=== PATIENT | male | born 1955 | race Caucasian/White ===

== ENCOUNTER 2017-07-12 16:36 | Emergency (ER) | payer OTHER ==
[~2017-07-12] VITALS: Ht 162.6 cm; Wt 76.1 kg
[2017-07-12 16:40] VITALS: Ht 162.6 cm; Wt 76.1 kg
[2017-07-12] MEDS ORDERED: IBUPROFEN 600 MG TAB PO ONE (17:30)
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
--- NOTE | 2017-07-12 18:39 | RADRPT ---
PROCEDURE: XR Elbow. CLINICAL INDICATION: Pain. TECHNIQUE: Three views of the right elbow. COMPARISON: None available. FINDINGS: The anterior fat pad is visible, but not elevated. The posterior fat pad is not seen. The anterior humeral and radiocapitellar lines are normal. No fracture or dislocation is identified. The joint spaces are preserved. There is no significant soft tissue swelling. IMPRESSION: 1. No fracture or dislocation of the right elbow. RPTAT: HTAR .Zack Javed MD, Date Time Electronically viewed and signed by .Zack Javed MD, on 07/12/2017 18:38 .R/
[2017-07-12] MEDS ORDERED: HYDR-906 PO (19:10)
[2017-07-12] MEDS ORDERED: CYCL-319 PO (19:10)
[2017-07-12] MEDS ORDERED: NAPR-260 PO (19:10)
[2017-07-12 19:29] VITALS: BP 154/89; PULSE 87; RESP 18; TEMP 97.1
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
== END 2017-07-12 19:31 | disposition home or self-care (01) ==
LOC: FTE 16:36
DX: M25.511 Pain in right shoulder (principal); M25.521 Pain in right elbow
CPT/HCPCS: 73000; 73080; Z7502; Z7610

== ENCOUNTER 2018-12-10 11:35 | Day surgery (SDC) | payer OTHER ==
[~2018-12-10] VITALS: Ht 161.3 cm; Wt 74.2 kg
[2018-12-10] VITALS (12 sets, daily range): BP systolic 127–174; BP diastolic 76–98; PULSE 53–68; RESP 15–20; Ht 161.3 cm; Wt 74.2 kg
[~2018-12-10 11:35] MED LIST: CYCL10TA7 PO; HYDR-4011 PO; NAPR-985 PO
[2018-12-10] MEDS ORDERED: ATEN-51 PO (11:56)
--- NOTE | 2018-12-10 12:31 | PREAC ---
Date/Time of Note Date/Time of Note DATE: 12/10/18 TIME: 12:28 Anesthesia Eval and Record Evaluation Time Pre-Procedure Interview DATE: 12/10/18 TIME: 12:28 Age 63 Sex male NPO: 8 hrs Preoperative diagnosis supraumbilical ventral hernia Planned procedure open repair of ventral hernia Past Medical History Past Medical History: Includes Cardio: HTN (on Atenolol, took today) Musculoskeletal: Other (ventral hernia. also have bilateral inguinal hernia, will not be operated on today, only ventral hernia repair.) Surgery & Anesthesia Issues No known issue (never had anesthesia ) Meds Anticoagulation: No Beta Carine within 24 hr: Yes Reported Medications Atenolol* (Atenolol*) 25 Mg Tablet, 25 MG PO DAILY, #30 TAB 12/10/18 Discontinued Scripts Cyclobenzaprine Hcl* (Cyclobenzaprine Hcl*) 10 Mg Tablet, 10 MG PO TID, #15 TAB Prov:HOWARD UPTON PA-C 07/12/17 Naproxen* (Naprosyn*) 500 Mg Tablet, 500 MG PO BID PRN for PAIN AND/OR INFLAMMATION, #30 TAB Prov:HOWARD UPTON PA-C 07/12/17 Hydrocodone/Acetaminophen (English 5-325 Tablet) 1 Each Tablet, 1 TAB PO Q6H PRN for PAIN, #7 TAB Prov:HOWARD UPTON PA-C 07/12/17 Current Medications Cefazolin Sodium/ Dextrose 50 ml @ 100 mls/hr PREOP IVPB ; Start 12/10/18 at 14:00; Stop 12/10/18 at 20:00 Sodium Chloride 1,000 ml @ 75 mls/hr [id number] IV ; Start 12/10/18 at 14:00; Stop 12/10/18 at 18:00 Meds reviewed: Yes (atenolol only ) Allergies Coded Allergies: No Known Allergy (Unverified , 12/10/18) Allergies Reviewed: Yes Labs/Studies Labs Reviewed: Reviewed by anesthesiologist test: N/A Studies: ECG (sinus bradycardia ), CXR (normal ) Pre-procedure Exam Last vitals Vital Signs Date Temp Pulse Resp B/P (MAP) Pulse Ox O2 O2 Flow FiO2 Time Delivery Rate 12/10/18 98.1 53 16 157/87 98 Room Air 12:21 (110) Airway: Adequate mouth opening, Adequate thyromental dist Mallampati: Mallampati II Teeth: Normal Lung: Normal Heart: Normal ASA Physical Status ASA physical status: 2 Emergency: None Planned Anesthetic General/MAC: ETT Planned Pain Management Parenteral pain med, Local by surgeon Pre-operative Attestations Prior to commencing anesthesia and surgery, the patient was re-evaluated, there was verification of: *The patient's identity *The results of appropriate recent lab work and preoperative vital signs *The above evaluation not changing prior to induction *Anesthetic plan, risk benefits, alternative and complications discussed with patient/family; questions answered; patient/family understands, accepts and wishes to proceed. KIRSTEN PORTILLO December 10, 2018 12:31
[2018-12-10] MEDS ORDERED: SOD CHLORIDE 0.9% 1,000 ML IV SCH (14:00)
[2018-12-10] MEDS ORDERED: CEFAZOLIN 2 GM/50 ML (PMX) 50 ML IVPB SCH (14:00)
[2018-12-10] MEDS ORDERED: PROPOFOL 20 ML ONE (14:08)
[2018-12-10] MEDS ORDERED: CEFAZOLIN 1 GM INJ ONE (14:08)
[2018-12-10] MEDS ORDERED: FENTAnyl 50 MCG/ML VIAL ONE (14:08)
[2018-12-10] MEDS ORDERED: LIDOCAINE 100 MG SYRINGE ONE (14:08)
[2018-12-10] MEDS ORDERED: ROCURONIUM 50 MG INJ ONE (14:08)
[2018-12-10] MEDS ORDERED: BUPIVACAINE 0.25%/EPI (SDV) 30 ML INJ ONE (14:42)
--- NOTE | 2018-12-10 14:42 | HPN ---
Date/Time of Note Date/Time of Note DATE: 12/10/18 TIME: 14:42 Interval H&P Admission Note Pt. seen H&P reviewed: No system changes NAYE REEVES MD December 10, 2018 14:42
[2018-12-10] MEDS ORDERED: POLYMYXIN/BACITRACIN 1L IRRIG ONE (16:00)
[2018-12-10] MEDS ORDERED: BUPIVACAINE 0.25% (MPF) 30 ML INJ ONE (16:09)
[2018-12-10] MEDS ORDERED: GLYCOPYRROLATE 0.4 MG INJ ONE (16:25)
[2018-12-10] MEDS ORDERED: NEOSTIGMINE 3 MG/3 ML SYRINGE ONE (16:25)
[2018-12-10] MEDS ORDERED: IBUPROFEN 600 MG TAB PO PRN (16:30)
[2018-12-10] MEDS ORDERED: KETOROLAC 30 MG INJ IV PRN ×2 (16:30→17:00)
[2018-12-10] MEDS ORDERED: morphine 2 MG INJ IV PRN (16:30)
[2018-12-10] MEDS ORDERED: HYDROCODONE/APAP (5/325) TAB PO PRN ×2 (16:30)
[2018-12-10] MEDS ORDERED: ONDANSETRON 4 MG INJ IV PRN ×2 (16:30→17:00)
--- NOTE | 2018-12-10 16:38 | PAC ---
Date/Time of Note Date/Time of Note DATE: 12/10/18 TIME: 16:37 Post-Anesthesia Notes Post-Anesthesia Note Last documented vital signs Vital Signs Date Temp Pulse Resp B/P (MAP) Pulse Ox O2 O2 Flow FiO2 Time Delivery Rate 12/10/18 98.1 53 16 157/87 98 Room Air 1637 (110) Activity: WNL Respiratory function: WNL Cardiovascular function: WNL Mental status: Baseline Pain reasonably controlled: Yes Hydration appropriate: Yes Nausea/Vomiting absent: Yes NOEL PARDO December 10, 2018 16:38
--- NOTE | 2018-12-10 16:38 | OPR ---
Date/Time of Note Date/Time of Note DATE: 12/10/18 TIME: 16:31 Operative Report Procedure Date: December 10, 2018 Preoperative Diagnosis Ventral hernia chronically incarcerated with fat Postoperative Diagnosis Ventral hernia chronically incarcerated with fat Operation/Procedure Performed 1. Open repair of ventral hernia with mesh 2. Partial omentectomy Surgeon see signature line Rotary Peel Oven Tender None Anesthesia Type: general Anesthesiologist: NOEL PARDO Estimated Blood Loss: minimal Transfusion none Specimen Hernia sac and contents Grafts/Implants Bard ventraLex ST mesh size small Complications none Pt Condition Post Procedure: stable Disposition: PACU Indications Patient is an 63-year-old male who presented to the office with a painful bulge of the ventral abdominal wall. He was diagnosed on physical exam as having a ventral abdominal wall hernia approximately 2 cm above the umbilicus. The patient was scheduled for elective repair with mesh. All risks and benefits of the procedure including, but not limited to: Wound infection, excessive bleeding, postoperative seroma/hematoma formation, hernia recurrence, chronic pain, etc. were all discussed with the patient in full detail. The patient fully understood and wished to proceed with the procedure. Informed consent was obtained. Procedure Description Patient was brought to the operating room and placed supine on the operating table. Bilateral sequential compression devices were placed on both lower extremities. A dose of broad-spectrum perioperative intravenous antibiotics was given. After the induction of smooth general anesthesia the patient's abdomen was prepped and draped in standard surgical fashion. After performance of the surgical timeout a supraumbilical midline incision was made using a 15 blade scalpel. Incision was carried down through the skin and subcutaneous tissues. A moderate sized ventral abdominal wall hernia was identified containing incarcerated omentum. This was dissected free of surrounding tissues down to the level of the neck of the hernia in the anterior rectus fascia. The sac was dissected off of the fascial opening. Once mobilized a partial omentectomy was performed en bloc with the hernia sac transecting both the sac and the contents at its base. The stump was tied using a 2-0 Vicryl suture. The hernia contents were passed off the field as specimen. The hernia defect measured approximately 1.5 cm in maximal dimension. A small Bard Ventralex ST round mesh was then used to repair the hernia defect. Its tails were secured to the fascia using interrupted 2-0 Novafil sutures. The mesh was soaked in antibiotic irrigation prior to insertion into the field. With the repair complete it was inspected and noted to be tension-free and hemostatic. The wound cavity was then irrigated with more antibiotic irrigation. The fascia was then reapproximated over the mesh using a 0 PDS suture in [id number] fashion. Incision was then closed in layers using interrupted 3-0 Vicryl sutures for the subcutaneous layer. The skin was reapproximated using a running 4-0 Monocryl suture in subcuticular fashion. 0.25% Marcaine local anesthesia was applied around the skin of the incision site. Incision was cleaned and Dermabond was applied as well as an abdominal binder. The patient was awoken from anesthesia and transported to the recovery room in stable condition. All counts were correct at the end of the case 2. NAYE REEVES MD December 10, 2018 16:38
[2018-12-10] MEDS ORDERED: MEPERIDINE 25 MG INJ ONE (16:53)
[2018-12-10] MEDS ORDERED: hydrALAzine 20 MG INJ ONE (16:56)
[2018-12-10] MEDS ORDERED: FENTAnyl 50 MCG/ML VIAL IV PRN ×3 (17:00)
[2018-12-10] MEDS ORDERED: DIPHENHYDRAMINE 50 MG INJ IV PRN (17:00)
[2018-12-10] MEDS ORDERED: MEPERIDINE 25 MG INJ IV PRN (17:00)
[2018-12-10] MEDS ORDERED: OXYCODONE/ACETAMINOPHEN (5/325) TAB PO PRN ×2 (17:00)
[2018-12-10] MEDS ORDERED: LABETALOL HCL 20MG INJ IV PRN (17:00)
[2018-12-10] MEDS ORDERED: HYDROmorphONE 1 MG/5 ML IV SYRINGE IV PRN ×3 (17:00)
[2018-12-10] MEDS ORDERED: EPHEDrine SULFATE 50 MG/5 ML SYG IV PRN (17:00)
[2018-12-10] MEDS ORDERED: ALBUTEROL 0.083% (NEB) 2.5 MG/3 ML AMP HHN PRN (17:00)
[2018-12-10] MEDS ORDERED: hydrALAzine 20 MG INJ IV PRN (17:00)
== END 2018-12-10 18:15 | disposition home or self-care (01) ==
LOC: SDS 11:35
PROVIDERS: ATTEND Surgery
DX: K43.6 Other and unspecified ventral hernia with obstruction, without gangrene (principal); I10 Essential (primary) hypertension
CPT/HCPCS: 49561; 49568; 88302; C1781; J0360; J0690; J1170; J1885; J2001; J2175; J2405; J3010; Z7512; Z7610; J2710